=== PATIENT | female | born 1965 | race Caucasian/White ===

== ENCOUNTER → 2016-09-24 | Outpatient (CLI) | payer MEDICARE ==
[~2016-09-24] MED LIST: CRESTOR5 MG PO; CYTOMEL5 MCG PO; HYDROCODON-ACE1 EAC7 PO; LEVAQUIN500 MG PO; NICOTINE PATCH1 EAC2 TD; PREMARIN0.3 MG PO; PREMARIN0.625 MG PO; PROMETHAZINE HC25 M1 PO; PROTONIX40 MG PO; Protonix PO; SYNTHROID125 MCG PO; SYNTHROID150 MCG PO; TYLENOL REGULA325 MG PO; VITAMIN D2000 INTUN PO; VITAMIN D2000 UNI1 PO; VITAMIN E1000 UNI1 PO; Vicodin,Norco 5/325 PO; WELLBUTRIN100 MG PO; ZYRTEC10 M3 PO
== END | disposition home or self-care (01) ==
LOC: NUC 14:00
DX: C50.912 Malignant neoplasm of unspecified site of left female breast (principal)
CPT/HCPCS: 78195; A9541

== ENCOUNTER 2016-09-25 05:11 | Day surgery (SDC) | payer MEDICARE ==
[~2016-09-25] VITALS: Ht 170.2 cm; Wt 80.7 kg
[2016-09-25 12:30] VITALS: BP 130/87
[2016-09-25 13:18] VITALS: BP 111/79
== END 2016-09-25 13:30 | disposition home or self-care (01) ==
LOC: SDC 05:11 → EDSTATUS 09:30 → NUC 09:30 → SDC 13:30
DX: C50.912 Malignant neoplasm of unspecified site of left female breast (principal); J44.9 Chronic obstructive pulmonary disease, unspecified; E06.3 Autoimmune thyroiditis; E03.9 Hypothyroidism, unspecified; E04.9 Nontoxic goiter, unspecified; Z80.3 Family history of malignant neoplasm of breast; F17.210 Nicotine dependence, cigarettes, uncomplicated; Z79.899 Other long term (current) drug therapy
CPT/HCPCS: 78999; 88305; 88307; 88331; 88332; J0690; J1170; J2250; J2405; J2710; J3010; S0020